=== PATIENT | female | born 1955 | race African-American/Black ===

== ENCOUNTER 2024-03-13 15:01 | Emergency (ER) | payer OTHER ==
[~2024-03-13] VITALS: Ht 170.2 cm; Wt 56.7 kg
[2024-03-13 15:09] VITALS: TEMP 99.1
[2024-03-13 15:53] LABS: BASOPHILS % (AUTO) 0.5 % (0.0-2.0); EOSINOPHILS # (AUTO) 0.1 K/uL (0.0-0.7); EOSINOPHILS % (AUTO) 1.6 % (0.0-6.0); HEMATOCRIT 37 % (33-45); HEMOGLOBIN 12.4 g/dL (11.5-14.8); LYMPHOCYTES # (AUTO) 2.2 K/uL (0.8-4.8); MEAN CORPUSCULAR HEMOGLOBIN 31 PG (26.0-33.0); MEAN CORPUSCULAR HGB CONC 33 g/dl (31.0-36.0); MEAN CORPUSCULAR VOLUME 94 fL (82-100); MONOCYTES # (AUTO) 0.3 K/uL (0.1-1.30); NEUTROPHILS # (AUTO) 2.7 K/uL (1.8-8.9); NEUTROPHILS % (AUTO) 50.9 % (43.0-81.0); PLATELET COUNT (AUTO) 218 K/uL (150-450); RED BLOOD CELL COUNT(AUTO) 3.94 MIL/uL (4.0-5.2); RED CELL DISTRIBUTION WIDTH 12.4 % (11.5-15.0); WHITE BLOOD COUNT (AUTO) 5.3 K/uL (4.3-11.0)
[2024-03-13] MEDS: IV NS 0.9% 1,000 ML BAG IV ONE (15:56)
[2024-03-13] MEDS ORDERED: ACETAMINOPHEN 325 MG TABLET ONE (15:59)
[2024-03-13] MEDS ORDERED: diphenhydrAMINE HCL 50 MG/ML VIAL ONE (15:59)
[2024-03-13] MEDS ORDERED: METOCLOPRAMIDE HCL 10 MG/2 ML VIAL ONE (15:59)
[2024-03-13] MEDS ORDERED: Magnesium 1GM/D5W 100ML PREMIX 100 ML IV ONE (15:59)
[2024-03-13 16:00] LABS: CALCIUM, SERUM 9.5 mg/dL (8.5-10.1); CREATININE 0.8 mg/dL (0.6-1.3)
[2024-03-13] MEDS: ACETAMINOPHEN 325 MG TABLET PO ONE (16:00)
[2024-03-13] MEDS: diphenhydrAMINE HCL 50 MG/ML VIAL IV ONE (16:03)
[2024-03-13 16:06] LABS: ALBUMIN 4.1 g/dL (3.4-5.0); BILIRUBIN,DIRECT 0.2 mg/dL (0.0-0.2); BILIRUBIN,TOTAL 0.8 mg/dL (0.2-1.0); TOTAL PROTEIN, SERUM 7.4 g/dL (6.4-8.2)
[2024-03-13] MEDS: METOCLOPRAMIDE HCL 10 MG/2 ML VIAL IV ONE (16:12)
[2024-03-13] MEDS: Magnesium 1GM/D5W 100ML PREMIX 100 ML IV ONE (16:56)
[2024-03-13 18:36] VITALS: BP 145/75; O2SAT 100
== END 2024-03-13 18:20 | disposition home or self-care (01) ==
LOC: ER 15:10
DX: R51.9 Headache, unspecified (principal); I10 Essential (primary) hypertension; E78.00 Pure hypercholesterolemia, unspecified; Z88.8 Allergy status to other drugs, medicaments and biological substances
CPT/HCPCS: 36415; 70450-TC; 80048-TC; 80076-TC; 85025-TC; A4223; J1200; J2765; J3475; J7030